=== PATIENT | female | born 1995 | race Two or more races ===

== ENCOUNTER → 2020-07-28 | Outpatient (CLI) | payer OTHER | END | disposition home or self-care (01) | LOC: LAB 15:19 | DX: Z20.9 Contact with and (suspected) exposure to unspecified communicable disease (principal) | CPT/HCPCS: 36415; 86706; 86735; 86762; 86765; 86787 ==

== ENCOUNTER → 2020-08-21 | Outpatient (CLI) | payer OTHER | END | disposition home or self-care (01) | LOC: LAB 10:41 | PROVIDERS: ATTEND Nurse Practitioner Family | DX: Z20.9 Contact with and (suspected) exposure to unspecified communicable disease (principal) | CPT/HCPCS: 86787 ==

== ENCOUNTER 2024-04-04 14:31 | Emergency (ER) | payer BC, MEDICAID ==
[~2024-04-04] VITALS: Ht 160 cm; Wt 60.3 kg
[2024-04-04 15:21] VITALS: BP 148/87; PULSE 86; RESP 16; TEMP 99; O2SAT 98
== END 2024-04-04 15:27 | disposition home or self-care (01) ==
LOC: ER 14:31
DX: T18.0XXA Foreign body in mouth, initial encounter (principal); W44.F3XA Food entering into or through a natural orifice, initial encounter; Y93.89 Activity, other specified; Y92.89 Other specified places as the place of occurrence of the external cause; Y99.8 Other external cause status